=== PATIENT | female | born 1990 | race Caucasian/White ===

== ENCOUNTER 2020-05-06 18:23 | Emergency (ER) | payer OTHER, SELFPAY ==
[2020-05-06 18:34] VITALS: BP 145/98; PULSE 99; RESP 20; TEMP 36.7; O2SAT 100; BMI 24.0
[2020-05-06] MEDS: ACETAMINOPHEN 325 MG TABLET 650 MG PO (18:53)
[2020-05-06] MEDS: IBUPROFEN 400 MG TABLET PO (18:53)
--- NOTE | 2020-05-06 18:53 | ED_ITS ---
HPI - Extremity Injury (Lower) <Ginger Garcia PA-C - Last Filed: 05/06/20 21:49> General Chief Complaint: Extremity Injury, Lower Stated Complaint: left foot injury 2 days ago Time Seen by Provider: 05/06/20 18:26 Source: patient Mode of arrival: Ambulatory Limitations: no limitations History of Present Illness HPI Narrative: This is a well-appearing 29-year-old with history of previous sprain to her left ankle who presents to the emergency department complaining of left foot pain. Two days ago when she was hiking in the dark wearing low top shoes she rolled her ankle and fell to the ground catching herself with her shoulder. Since that time her left foot has been swollen and painful and uncomfortable to bear weight on. She is traveling and was hoping it would improve but came to the emergency department because she was concerned for possible fracture. She denies numbness or tingling, she has been using ice and trying to keep it elevated as much as she can though this has been difficult. She states that the swelling and bruising have increased slightly since her initial injury, she denies knee pain, shoulder pain, reduced range of motion reduced sensation or pain in her lower leg she does have some slight referred pain to her ankle. MD complaint: foot injury Injury: Left: foot Type of Injury: blunt and eversion Place: street/outdoors Severity: moderate Severity scale (1-10): 6 (With weight-bearing) Relieving factors: cold therapy and rest Exacerbating factors: weight bearing, movement and palpation Context: fall (Trip and fall) Associated symptoms: swelling and able to partially bear weight Other symptoms: none Treatments prior to arrival: cold therapy and other (Elevation) Review of Systems <Ginger Garcia PA-C - Last Filed: 05/06/20 21:49> Review of Systems Narrative: GENERAL: Denies chills, fatigue, malaise, fever, sweats. HEENT: Denies sinus pain, ear pain, sore throat, difficulty swallowing, dizziness. RESPIRATORY: Denies dyspnea, cough, wheezing, hemoptysis, sputum. CARDIOVASCULAR: Denies chest pain, palpitations, orthopnea, edema, GASTROINTESTINAL: Denies nausea, vomiting, abdominal pain, diarrhea, constipation, melena. : Denies dysuria, frequency, incontinence, hematuria, urinary retention. MUSCULOSKELETAL: Positive for pain in the top of her left foot radiating towards her toes and towards her ankle. Denies other weakness, joint pain, or bony pain SKIN: Denies rash, skin lesions, or other NEUROLOGIC: Denies weakness, headache, numbness, change in speech, confusion, seizures, incoordination. PSYCHIATRIC: No concerning psychosocial issues. 12 point review of systems is negative except for those stated above Patient History <Ginger Garcia PA-C - Last Filed: 05/06/20 21:49> Social History Smoking Status: Never smoker Smoking Status: Never smoker alcohol intake frequency: a few times a month Substance Use Type: does not use Exam <Ginger Garcia PA-C - Last Filed: 05/06/20 21:49> Narrative Exam Narrative: GENERAL: 29 year old patient appears stated age. Well-nourished, well-developed patient, in mild distress. HEAD: Atraumatic. Normocephalic. EYES: Pupils equal round and reactive. Extraocular motions intact. No scleral icterus. No injection or drainage. ENT: Nose without bleeding, purulent drainage. Throat without erythema, tonsillar hypertrophy or exudate. Airway patent. NECK: Trachea midline. Non tender CARDIOVASCULAR: Regular rate and rhythm without murmurs, gallops, or rubs. RESPIRATORY: Clear to auscultation. Breath sounds equal bilaterally. No wheezes, rales, or rhonchi. GASTROINTESTINAL: Abdomen soft, non-tender, nondistended. EXTREMITIES: There is moderate swelling of the entire left foot nose most notable on the dorsum of the foot extending to the proximal toes and affecting the ankle bilaterally. The Achilles tendon is intact, there is generalized tenderness in the area of swelling, no bony tenderness over the medial and lateral malleoli. No tenderness over the tibia or fibula. There is tenderness over the dorsum of the foot proximally and extending down into the metatarsals 1st 2nd and 3rd. No other edema or joint tenderness. BACK: Nontender without deformity or crepitance. No flank tenderness. NEURO: AOx3. SKIN: No rash or erythema of visible areas Initial Vital Signs Initial Vital Signs: Vital Signs Temperature 98.1 F 05/06/20 18:34 Pulse Rate 99 H 05/06/20 18:34 Respiratory Rate 20 05/06/20 18:34 Blood Pressure 145/98 H 05/06/20 18:34 Pulse Oximetry 100 05/06/20 18:34 <Corin Blanco MD - Last Filed: 05/07/20 05:08> Initial Vital Signs Initial Vital Signs: Vital Signs Temperature 98.1 F 05/06/20 18:34 Pulse Rate 99 H 05/06/20 18:34 Respiratory Rate 05/06/20 18:34 Blood Pressure 145/98 H 05/06/20 18:34 Pulse Oximetry 100 05/06/20 18:34 Scores <Ginger Garcia PA-C - Last Filed: 05/06/20 21:49> ABCD2 Citation: Lancet. 2006Sep 23;369(5947):283-92. Validation and refinement of scores to predict very early stroke risk after transient ischaemic attack. Elvira SC1, Chris PM, Juan MN, Diogo MF, Mojgan JS, Nkechi AL, Satya S. GCS Luna coma scale eye opening: Spontaneous Luna coma scale verbal response: Orientated Luna coma scale motor response: Obey commands Dandre coma scale total score: 15 Course <Ginger Garcia PA-C - Last Filed: 05/06/20 21:49> Orders Ordered: Discontinued Medications Acetaminophen (Tylenol) 650 mg PO NOW ONE Stop: 05/06/20 18:40 Last Admin: 05/06/20 18:53 Dose: 650 mg Documented by: HARPAL Ibuprofen (Advil) 400 mg PO NOW ONE Stop: 05/06/20 18:40 Last Admin: 05/06/20 18:53 Dose: 400 mg Documented by: HARPAL Vital Signs Vital signs: Vital Signs - 8 hr 05/06/20 18:34 05/06/20 20:36 Temperature 98.1 F Pulse Rate 99 H 80 Respiratory Rate 20 13 Blood Pressure 145/98 H 134/88 Pulse Oximetry 100 100 <Corin Blanco MD - Last Filed: 05/07/20 05:08> Orders Ordered: Discontinued Medications Acetaminophen (Tylenol) 650 mg PO NOW ONE Stop: 05/06/20 18:40 Last Admin: 05/06/20 18:53 Dose: 650 mg Documented by: HARPAL Ibuprofen (Advil) 400 mg PO NOW ONE Stop: 05/06/20 18:40 Last Admin: 05/06/20 18:53 Dose: 400 mg Documented by: HARPAL Vital Signs Vital signs: Vital Signs - 8 hr 05/06/20 18:34 05/06/20 20:36 Temperature 98.1 F Pulse Rate 99 H 80 Respiratory Rate 20 13 Blood Pressure 145/98 H 134/88 Pulse Oximetry 100 100 MDM - Extremity Injury (Lower) <Ginger Garcia PA-C - Last Filed: 05/06/20 21:49> Differential Diagnosis Differential diagnosis: Likely ankle sprain and strain, ankle fracture and other (Metatarsal fracture, navicular fracture) Medical Records Attestation: I reviewed the patient's medical records. Imaging Data Extremity x-ray #1: Attestation: I personally reviewed and interpreted this imaging study as follows: Radiologist's Impression: [address] [address] XRay Report Signed Patient: Sonia Gold LMR#: [id number] : 1990Acct:[id number] Age/Sex: 29 / FDate of Service: 05/06/20 Loc: ED Accession Number: [id number] Procedure: XR foot LT min 3V Ordering Provider: Ginger Garcia P.A-C PROCEDURE: XR FOOT LT MIN 3V INDICATIONS: fall, swelling reduced ROM, pain w/ambulation TECHNIQUE: 3 views of the foot were acquired. COMPARISON: None. FINDINGS: Bones: There is cortical irregularity involving the dorsal surface of the navicular bone seen only on the lateral view. Overlying soft tissue swelling which is predominantly over the dorsal aspect of the distal left forefoot. Remainder of the visualized osseous structures appear intact.No suspicious bony lesions. Soft tissues: No tibiotalar joint effusion. Achilles tendon appears normal. IMPRESSION: Mild cortical irregularity involving the dorsal surface of the navicular bone with overlying soft tissue swelling. This may represent an avulsion injury if there is point tenderness in this region. Distal left forefoot soft tissue swelling without underlying osseous abnormalities. Consider immobilization and repeat imaging in 10-14 days to evaluate for reactive changes of subacute fracture healing. Dictated by: Farooq Turk M.D. on 05/06/2020 at 19:28 Approved by: Farooq Turk M.D. on 05/06/2020 at 19:31 MDM Narrative Medical decision making narrative: This is a well-appearing but slightly uncomfortable 29-year-old without significant medical history previous left ankle sprain who presents with complaint of worsening left foot pain with associated swelling and bruising after falling while hiking 2 days ago. Exam is consistent with a sprain and strain, possible fracture. X-ray reveals a cortical abnormality of the navicular bone on the lateral x-ray. She is splinted in a posterior short-leg splint and instructed to follow-up with orthopedics. She is referred to [facility] however she is currently traveling and will likely see an orthopedic provider at her home in [place]. Advised her she is welcome to call [facility] and discussed her injury and determine best timing for follow-up. She is also provided with crutches in the emergency department. Advised to alternate Tylenol and ibuprofen for pain and keep her foot elevated as much as possible. Emergency return precautions provided, all questions answered. Discharge Plan Departure Patient Disposition: Home Clinical Impression: Fx navicular, foot-closed Qualifiers: Encounter type: initial encounter Fracture alignment: nondisplaced Laterality: left Qualified Code(s): S92.255A - Nondisplaced fracture of navicular [scaphoid] of left foot, initial encounter for closed fracture Foot sprain Qualifiers: Encounter type: initial encounter Laterality: left Qualified Code(s): S93.602A - Unspecified sprain of left foot, initial encounter Discharge Date/Time: 05/06/20 20:38 Instructions: DI for Fracture, DI for Foot Sprain Activity Restrictions/Additional Instructions: Thank you for letting us a part of your care in the emergency department today. Your x-rays did show an irregularity in 1 of the bones of your foot-your navicular bone, that is suggestive of a fracture however recommendation is read have repeat imaging in the next 10 days to 2 weeks (if it is fractured it is non-displaced and appears stable). This was splinted today in the emergency department, please try to keep her splint dry. Please use the crutches provided. It will also be important for you to follow-up with an orthopedic doctor I have included their information here in your paperwork, you should keep the splint on and use crutches at least until your follow-up appointment with Orthopedics but you may need to wear/use them longer. I generally recommend alternating Tylenol and ibuprofen for pain. There is no evidence of an emergent or life threatening illness at this time, but follow up with your doctor in 1-2 days is recommended nonetheless to continue to rule out serious underlying causes of your symptoms. Please call the office for an appointment. Please return to the Emergency Department for any worsening or persistent symptoms. Please take medications as directed. Referrals: Mica Tomlin MD [Physician] - (Possible Navicular fracture) <Corin Blanco MD - Last Filed: 05/07/20 05:08> Cosign ED Attending Cosignature Attestation: I was immediately available in the department for consultation throughout this patient's visit. I agree with documentation as above. Corin Blanco MD
--- NOTE | 2020-05-06 19:02 | DI.RAD.S_ITS ---
PROCEDURE: XR FOOT LT MIN 3V INDICATIONS: fall, swelling reduced ROM, pain w/ambulation TECHNIQUE: 3 views of the foot were acquired. COMPARISON: None. FINDINGS: Bones: There is cortical irregularity involving the dorsal surface of the navicular bone seen only on the lateral view. Overlying soft tissue swelling which is predominantly over the dorsal aspect of the distal left forefoot. Remainder of the visualized osseous structures appear intact.No suspicious bony lesions. Soft tissues: No tibiotalar joint effusion. Achilles tendon appears normal. IMPRESSION: Mild cortical irregularity involving the dorsal surface of the navicular bone with overlying soft tissue swelling. This may represent an avulsion injury if there is point tenderness in this region. Distal left forefoot soft tissue swelling without underlying osseous abnormalities. Consider immobilization and repeat imaging in 10-14 days to evaluate for reactive changes of subacute fracture healing. Dictated by: Farooq Turk M.D. on 05/06/2020 at 19:28 Approved by: Farooq Turk M.D. on 05/06/2020 at 19:31
[2020-05-06 20:36] VITALS: BP 134/88; PULSE 80; RESP 13; O2SAT 100
== END 2020-05-06 20:38 | disposition home or self-care (01) ==
PROVIDERS: Emergency Provider Student in an Organized Health Care Education/Training Program
DX: S92.255A Nondisplaced fracture of navicular [scaphoid] of left foot, initial encounter for closed fracture (principal); S93.602A Unspecified sprain of left foot, initial encounter; W19.XXXA Unspecified fall, initial encounter
CPT/HCPCS: 29515; 73630; 99283; 99284